=== PATIENT | female | born 1955 | race Caucasian/White ===

== ENCOUNTER 2019-06-28 15:41 | Emergency (ER) | payer OTHER ==
[~2019-06-28] VITALS: Ht 165.1 cm; Wt 135.2 kg
[~2019-06-28 15:41] MED LIST: DIPH50 PO; EPIN.3I IM; FAMO40 PO; METPRE4DP PO
[2019-06-28] MEDS ORDERED: EPIPEN 2-P0.3 MG/0.3 IM (16:38)
== END 2019-06-28 16:55 | disposition home or self-care (01) ==
LOC: ER 15:41
DX: T78.1XXA Other adverse food reactions, not elsewhere classified, initial encounter (principal); R21 Rash and other nonspecific skin eruption; Z88.6 Allergy status to analgesic agent
CPT/HCPCS: 96374; 96375; 99284-25; J1200; J2930

== ENCOUNTER → 2019-10-13 | Outpatient (CLI) | payer OTHER ==
[~2019-10-13] MED LIST changes: +BENADRYL25 MG; +EPIPEN 2-P0.3 MG/0.3 IM; +ERGO400; +FAMO10; +PROBIOTIC1 EAC1; +VITAMIN B-1250 MCG
[2019-10-15 16:08] LABS: HPV 16 Negative (Negative); HPV 18 Negative (Negative); HPV OTHER HR TYPES Negative (Negative)
== END | disposition home or self-care (01) ==
LOC: LAB 16:54 → LAB SHORT 16:54
PROVIDERS: Internal Medicine
DX: Z01.419 Encounter for gynecological examination (general) (routine) without abnormal findings (principal)
CPT/HCPCS: 87624; G0123

== ENCOUNTER → 2023-08-27 | Outpatient (CLI) | payer OTHER | END | disposition home or self-care (01) | LOC: LAB SHORT 11:54 → LAB 11:54 | DX: C44.311 Basal cell carcinoma of skin of nose (principal) | CPT/HCPCS: 88305 ==